=== PATIENT | male | born 1955 | race Caucasian/White ===

== ENCOUNTER 2019-04-17 15:20 | Emergency (ER) | payer OTHER ==
[~2019-04-17] VITALS: Ht 165.1 cm; Wt 60.0 kg
[2019-04-17 15:36] VITALS: Ht 165.1 cm; Wt 60.0 kg
--- NOTE | 2019-04-17 20:56 | ERD ---
ER Documentation Chief Complaint Chief Complaint lab work prior to getting dialysis HPI 63-year-old male with a history of ESRD on hemodialysis and hypertension presenting from [facility] with request for lab work. Reportedly the patient went to [place] for 2 months and is now returning. Before he can get dialysis, they state that he needs certain blood tests done including hepatitis B testing as well as either chest x-ray or blood work for TB. Patient is completely asymptomatic at this time. Denies any cough, hemoptysis, fever, chills, abdominal pain, chest pain, shortness of breath, nausea, vomiting, diarrhea. ROS All systems reviewed and are negative except as per history of present illness. Allergies Allergies: Coded Allergies: No Known Allergy (Unverified , 04/17/19) PMhx/Soc History of Surgery: Yes (permacath, AV shunt) Anesthesia Reaction: No Hx Neurological Disorder: No Hx Respiratory Disorders: No Hx Cardiac Disorders: Yes (HTN) Hx Psychiatric Problems: No Hx Miscellaneous Medical Probl: Yes (To start dialysis) Hx Alcohol Use: No Hx Substance Use: No Hx Tobacco Use: No Smoking Status: Never smoker FmHx Family History: diabetes Physical Exam Vitals Vital Signs Date Temp Pulse Resp B/P (MAP) Pulse Ox O2 O2 Flow FiO2 Time Delivery Rate 04/17/19 98.0 67 15 201/84 100 Room Air 21:15 (123) 04/17/19 97.9 72 18 128/68 100 15:36 (88) Physical Exam Const: No acute distress Head: Atraumatic Eyes: Normal Conjunctiva ENT: Normal External Ears, Nose and Mouth. Neck: Full range of motion. No meningismus. Resp: Clear to auscultation bilaterally Cardio: Regular rate and rhythm, no murmurs Abd: Soft, non tender, non distended. No hepatomegaly. Normal bowel sounds Skin: No petechiae or rashes Ext: No cyanosis, or edema Neur: Awake and alert Psych: Normal Mood and Affect Result Diagram: 04/17/19 1549 Results 24 hrs Laboratory Tests Test 04/17/19 18:37 04/17/19 19:37 Sodium Level 138 mmol/L Potassium Level 5.0 mmol/L Chloride Level 103 mmol/L Carbon Dioxide Level 19 mmol/L Anion Gap 16 Blood Urea Nitrogen 59 mg/dl Creatinine 10.41 mg/dl Est Glomerular Filtrat Rate mL/min 5 mL/min Glucose Level 109 mg/dl Calcium Level 8.1 mg/dl Phosphorus Level 5.6 mg/dl Magnesium Level 3.0 mg/dl Hepatitis B Surface Antigen NEGATIVE Hepatitis B Core Total Antibody NEGATIVE Hepatitis C Antibody NEGATIVE Hepatitis A IgM Antibody NON-REACTIVE Procedures/MDM EMERGENT LABS AND DIAGNOSTIC STUDIES: Lab Results above were reviewed and interpreted by me. BMP: Evidence of chronic kidney disease with elevated BUN and creatinine with no e/o clinically significant electrolyte abnormality, severe acidosis, alkalosis, diabetic ketoacidosis Hepatitis panel: Negative Radiology Results as interpreted by Radiology below were reviewed by Susan Celis MD: Chest x-ray shows no significant abnormalities, no evidence of TB Initial Nursing notes reviewed. Previous Medical Records requested via the Electronic Health Record. EMERGENCY DEPARTMENT COURSE / MEDICAL DECISION MAKING: Patient is presenting with request for blood work for dialysis. He was noted to be hypertensive but is asymptomatic. Otherwise his vitals are unremarkable. Exam was unremarkable. No evidence of fluid overload at this time. No evidence of significant electrolyte abnormalities. Patient does not require emergent dialysis at this time. Labs were done and showed no significant abnormalities other than evidence of chronic kidney disease. I provided the patient with his blood and chest x-ray results. I feel he is medically cleared to go back to dialysis. Patient's blood pressure was elevated (>120/80) but appears stable without evidence of hypertensive emergency or urgency. The patient was counseled about the risks of hypertension and urged to pursue outpatient monitoring and therapy within a week with their primary care physician. Departure Diagnosis: Primary Impression: Encounter for laboratory test Additional Impression: ESRD on hemodialysis Condition: Stable Patient Instructions: Medical Screening Exam, Nonurgent Referrals: NO PRIMARY,CARE PHYSICIAN (PCP) MARGO CELIS MD Apr 17, 2019 20:56
[2019-04-17 21:15] VITALS: BP 201/84; PULSE 67; RESP 15
== END 2019-04-17 21:18 | disposition home or self-care (01) ==
LOC: E/R 15:20
DX: N18.6 End stage renal disease (principal); I12.0 Hypertensive chronic kidney disease with stage 5 chronic kidney disease or end stage renal disease; Z99.2 Dependence on renal dialysis
CPT/HCPCS: 71045; 80048; 83735; 84100; 86704; 86709; 86803; 87340; Z7502

== ENCOUNTER 2019-04-19 11:13 | Emergency (ER) | payer OTHER ==
[~2019-04-19] VITALS: Ht 162.6 cm; Wt 60.6 kg
[2019-04-19 11:15] VITALS: Ht 162.6 cm; Wt 60.6 kg
--- NOTE | 2019-04-19 12:36 | ERD ---
ER Documentation Chief Complaint Chief Complaint sent by clinic -needs medical evaluation ( lab works) before dialysis HPI 63-year-old male sent by his dialysis clinic for lab request. I actually saw this patient 2 days ago and labs and imaging were done. Patient has no complaints at this time but states that his dialysis was 5 days ago and he is requesting dialysis. No complaints at this time. ROS All systems reviewed and are negative except as per history of present illness. Medications Home Meds Reported Medications Calcium Acetate* (Calcium Acetate*) 667 Mg Capsule, 1334 MG PO WITH MEALS, #60 CAP 04/19/19 Losartan Potassium* (Losartan Potassium*) 50 Mg Tablet, 50 MG PO DAILY, TAB 04/19/19 Allergies Allergies: Coded Allergies: No Known Allergy (Unverified , 04/19/19) PMhx/Soc History of Surgery: Yes (permacath, AV shunt) Anesthesia Reaction: No Hx Neurological Disorder: No Hx Respiratory Disorders: No Hx Cardiac Disorders: Yes (HTN) Hx Psychiatric Problems: No Hx Miscellaneous Medical Probl: Yes (dm , on dialsysis ) Hx Alcohol Use: No Hx Substance Use: No Hx Tobacco Use: No Smoking Status: Never smoker FmHx No pertinent history Physical Exam Vitals Vital Signs Date Temp Pulse Resp B/P (MAP) Pulse Ox O2 O2 Flow FiO2 Time Delivery Rate 04/19/19 69 18 200/96 98 Room Air 13:45 (130) 04/19/19 98.2 73 19 210/93 99 11:15 (132) Physical Exam INITIAL VITAL SIGNS: Reviewed by me GENERAL: Well appearing, non toxic, speaking in full sentences. HEENT: Atraumatic, Moist mucous membranes NECK: Supple. RESPIRATORY: No respiratory distress. Clear to auscultation bilaterally CV: regular rate rhythm EXTREMITIES: No clubbing or cyanosis. No edema SKIN: Warm, dry. NEUROLOGIC: Alert and awake. No facial asymmetry. Normal speech. Result Diagram: 04/19/19 1301 Results 24 hrs Laboratory Tests Test 04/19/19 13:01 04/19/19 13:35 Sodium Level 139 mmol/L Potassium Level 5.4 mmol/L Chloride Level 105 mmol/L Carbon Dioxide Level 18 mmol/L Anion Gap 16 Blood Urea Nitrogen 90 mg/dl Creatinine 12.20 mg/dl Est Glomerular Filtrat Rate mL/min 4 mL/min Glucose Level 237 mg/dl Calcium Level 7.6 mg/dl Hepatitis B Surface Antibody POSITIVE Current Medications Medications Dose Sig/Hattie Start Time Status Last (Trade) Ordered Route PRN Stop Time Admin Dose Reason Admin Sodium 30 gm ONCE ONCE 04/19/19 DC Polystyrene PO 15:00 04/19/19 Sulfonate 15:01 (Kayexalate) Sodium 30 gm ONCE ONCE 04/19/19 Polystyrene PO 15:30 04/19/19 Sulfonate 15:31 (Kayexelate 15 Gm Kit (Powder+Sorbi seth)) Procedures/MDM Spoke with the dialysis center. It seems that the patient's daughter had faxed the results to another place and not to them. They never received the results. We did fax the results from the ER to the dialysis center. However they state they do not have a chair for the patient until 2 days from now. For this reason, BMP was done in the ED. no significant hyperkalemia. Patient given Kayexalate orally. They also requested a hep B surface antibody test to be done. This test was positive for antibodies. Patient provided with results. Will have dialysis this week Patient's blood pressure was elevated (>120/80) but appears stable without evidence of hypertension emergency or urgency. The patient was counseled about the risks of hypertension and urged to pursue outpatient monitoring and therapy within a week with their primary care physician. Departure Diagnosis: Primary Impression: ESRD on hemodialysis Additional Impression: Encounter for laboratory test Condition: Stable MARGO HOBBS MD Apr 19, 2019 12:36
[2019-04-19] MEDS ORDERED: LOSA50TA14 PO (13:44)
[2019-04-19] MEDS ORDERED: CALC667C PO (13:45)
[2019-04-19] MEDS ORDERED: NA POLYST SULFON 15 GM/60 ML BTL PO ONE (15:00)
[2019-04-19] MEDS ORDERED: SODIUM POLYSTYRENE 15 GM KIT (POWDER + SORBITOL) PO ONE (15:30)
[2019-04-19 16:00] VITALS: BP 182/89; PULSE 71; RESP 18
== END 2019-04-19 16:00 | disposition home or self-care (01) ==
LOC: E/R 11:13
DX: N18.6 End stage renal disease (principal); E11.22 Type 2 diabetes mellitus with diabetic chronic kidney disease; I12.0 Hypertensive chronic kidney disease with stage 5 chronic kidney disease or end stage renal disease; Z99.2 Dependence on renal dialysis
CPT/HCPCS: 80048; 86706; Z7502; Z7610

== ENCOUNTER 2019-07-01 08:17 | Emergency (ER) | payer OTHER ==
[~2019-07-01] VITALS: Ht 167.6 cm; Wt 59.4 kg
[~2019-07-01 08:17] MED LIST: CALC667C PO; CEPH-443 PO; LOSA50TA14 PO; SULF1TAB31 PO
[2019-07-01 08:30] VITALS: Ht 167.6 cm; Wt 59.4 kg
[2019-07-01] MEDS ORDERED: VANCOMYCIN 1 GM (PMX) 250 ML IVPB ONE (10:30)
[2019-07-01] MEDS ORDERED: SOD CHLORIDE 0.9% 500 ML IV ONE (10:30)
--- NOTE | 2019-07-01 10:40 | ERD ---
ER Documentation Chief Complaint Chief Complaint right arm red warm & swollen x3 days sent fr clinic HPI This is a 63-year-old male with a past medical history of hypertension, diabetes, end-stage renal disease status post left arm AV fistula that is no longer functional now with a right chest permacatheter on dialysis Wednesday/Wedne /Wednesday, last completed dialysis fully, who is presenting for 5 days of progressive worsening pain, swelling, redness and warmth to the right hand and forearm. The patient reports moderate sharp pain to the right pinky specifically with significant pain with movement of the pinky. The patient does not endorse any trauma or injury. He does not endorse any alleviating factors. The patient denies feeling sick recently. The patient denies fever or chills. The patient has had no headache or vision changes. The patient does not endorse neck or back pain. The patient denies lightheadedness or dizziness. The patient has had no chest pain or trouble breathing. The patient denies nausea or vomiting. The patient denies abdominal pain. The patient denies changes to bowel movements or urination. The patient has had no focal deficits. The patient has had no weakness or numbness or tingling to the face or extremities. ROS All systems reviewed and are negative except as per history of present illness. Medications Home Meds Reported Medications Calcium Acetate* (Calcium Acetate*) 667 Mg Capsule, 1334 MG PO WITH MEALS, #60 CAP 04/19/19 Losartan Potassium* (Losartan Potassium*) 50 Mg Tablet, 50 MG PO DAILY, TAB 04/19/19 Allergies Allergies: Coded Allergies: No Known Allergy (Unverified , 07/01/19) PMhx/Soc History of Surgery: Yes (permacath, AV shunt) Anesthesia Reaction: No Hx Neurological Disorder: No Hx Respiratory Disorders: No Hx Cardiac Disorders: Yes (HTN) Hx Psychiatric Problems: No Hx Miscellaneous Medical Probl: Yes (dm , on dialsysis ( wed , wed, wed )) Hx Alcohol Use: No Hx Substance Use: No Hx Tobacco Use: No Smoking Status: Never smoker FmHx Family History: diabetes Physical Exam Vitals Vital Signs Date Temp Pulse Resp B/P (MAP) Pulse Ox O2 O2 Flow FiO2 Time Delivery Rate 07/01/19 99.6 86 16 190/90 99 Room Air 10:00 (123) 07/01/19 99.4 80 20 215/101 100 08:30 (139) Physical Exam Const: No acute distress Head: Atraumatic Eyes: Normal Conjunctiva ENT: Normal External Ears, Nose and Mouth. Neck: Full range of motion. No meningismus. Resp: Clear to auscultation bilaterally Cardio: Regular rate and rhythm, no murmurs Chest: Right chest permacath present without surrounding erythema or induration or purulence or fluctuance. Abd: Soft, non tender, non distended. Normal bowel sounds Skin: No petechiae or rashes Back: No midline or flank tenderness Ext: No cyanosis. Left forearm fistula site without palpable thrill. Erythema, warmth and edema to the ulnar aspect of the right forearm and hand, extending into the right pinky. Symmetric circumferential swelling of the right pinky with tenderness to palpation diffusely and significant pain on passive extension. Neur: Awake and alert Psych: Normal Mood and Affect Result Diagram: 07/01/19 1038 07/01/19 1038 Results 24 hrs Laboratory Tests Test 07/01/19 10:38 White Blood Count 6.7 10^3/ul Red Blood Count 3.89 10^6/ul Hemoglobin 12.3 g/dl Hematocrit 38.8 % Mean Corpuscular Volume 99.7 fl Mean Corpuscular Hemoglobin 31.6 pg Mean Corpuscular Hemoglobin Concent 31.7 g/dl Red Cell Distribution Width 12.9 % Platelet Count 170 10^3/UL Mean Platelet Volume 9.4 fl Immature Granulocytes % 0.300 % Neutrophils % 74.2 % Lymphocytes % 12.4 % Monocytes % 12.4 % Eosinophils % 0.6 % Basophils % 0.1 % Nucleated Red Blood Cells % 0.0 /100WBC Immature Granulocytes # 0.020 10^3/ul Neutrophils # 5.0 10^3/ul Lymphocytes # 0.8 10^3/ul Monocytes # 0.8 10^3/ul Eosinophils # 0.0 10^3/ul Basophils # 0.0 10^3/ul Nucleated Red Blood Cells # 0.0 10^3/ul Sodium Level 136 mmol/L Potassium Level 5.6 mmol/L Chloride Level 100 mmol/L Carbon Dioxide Level 24 mmol/L Anion Gap 12 Blood Urea Nitrogen 41 mg/dl Creatinine 7.95 mg/dl Est Glomerular Filtrat Rate mL/min 7 mL/min Glucose Level 118 mg/dl Calcium Level 8.8 mg/dl Current Medications Medications Dose Sig/Hattie Start Time Status Last (Trade) Ordered Route PRN Stop Time Admin Dose Reason Admin Sodium 500 ml @ Q1H ONCE 07/01/19 DC 07/01/19 Chloride 500 mls/hr IV 10:30 10:50 07/01/19 11:29 Vancomycin 250 ml @ ONCE ONCE 07/01/19 DC 07/01/19 HCl 125 mls/hr IVPB 10:30 10:49 07/01/19 12:29 Procedures/MDM MDM The patient's presentation warrants further investigation. Previous medical records, if available, were reviewed. LABS The patient's laboratory testing was obtained and reviewed. No emergent treatment was required unless described below. CBC: No E/o systemic infection or severe anemia or thrombocytopenia. Mild normocytic anemia is evident. Chemistry: No E/o severe acidosis or alkalosis or diabetic ketoacidosis. Elevated BUN and creatinine in line with known end-stage renal disease. Mild hyperkalemia, not emergent prior to antibiotic administration. IMAGING Imaging and Radiology interpretation reviewed. MRI R Hand Pending TREATMENT/DISPOSITION The patient presents for a right upper extremity infection. There is evidence of cellulitis to the extremity. That said, given the presentation of the patient's fifth digit, I am concerned about the possibility of flexor tenosynovitis. There is tenderness along the course of the flexor sheath. There is symmetric enlargement of the affected digit. The finger is slightly flexed at rest. There is pain along the tendon with passive extension. I spoke with the hand surgeon, Dr. Worrell, who recommended that an MRI of the right hand to be completed in the emergency department. The results of the MRI are pending. If the MRI is positive for flexor tenosynovitis, the patient will require transfer to a facility with an on-call hand surgeon this weekend. Dr. Worrell was available to discuss the case, but she is not container shop welder and not available to emergently evaluate this patient for surgical intervention if the diagnosis of flexor tenosynovitis is confirmed. In this situation, the patient will require transfer to a higher level of care. If the patient does not have flexor tenosynovitis or any other emergent pathology, the patient may be discharged with prescriptions for Keflex and Bactrim. He will require close follow-up in an outpatient setting in this situation. The patient was treated with a dose of vancomycin in the emergency department. The patient is not septic and does not require a full septic work-up. That said, blood cultures were sent off. The patient was signed out to the oncoming physician at 3 PM on July 01, 2019 pending the results of the MRI. DISCLAIMER Inadvertent spelling and grammatical errors are likely due to EHR/dictation sof tware use and do not reflect on the overall quality of patient care. Note that the electronic time recorded on this note does not necessarily reflect the actual time of the patient encounter. Departure Diagnosis: Primary Impression: Cellulitis of right hand Additional Impressions: Flexor tenosynovitis of finger ESRD (end stage renal disease) on dialysis Hyperkalemia Normocytic anemia Condition: Stable (Anticipated) ASTRID CAREY MD Jul 01, 2019 10:30
[2019-07-01] MEDS ORDERED: NICARDipine HCL 30 MG CAPSULE PO ONE (17:00)
--- NOTE | 2019-07-01 17:18 | ERD ---
ER Documentation Chief Complaint Chief Complaint right arm red warm & swollen x3 days sent fr clinic ROS All systems reviewed and are negative except as per history of present illness. Medications Home Meds Active Scripts Cephalexin* (Keflex*) 500 Mg Capsule, 500 MG PO QID for 10 Days, CAP Prov:ASTRID COOLEY MD 07/01/19 Sulfamethoxazole/Trimethoprim* (Bactrim Ds* Tablet) 1 Each Tablet, 1 TAB PO BID, #20 TAB Prov:ASTRID COOLEY MD 07/01/19 Reported Medications Calcium Acetate* (Calcium Acetate*) 667 Mg Capsule, 1334 MG PO WITH MEALS, #60 CAP 04/19/19 Losartan Potassium* (Losartan Potassium*) 50 Mg Tablet, 50 MG PO DAILY, TAB 04/19/19 Allergies Allergies: Coded Allergies: No Known Allergy (Unverified , 07/01/19) PMhx/Soc History of Surgery: Yes (permacath, AV shunt) Anesthesia Reaction: No Hx Neurological Disorder: No Hx Respiratory Disorders: No Hx Cardiac Disorders: Yes (HTN) Hx Psychiatric Problems: No Hx Miscellaneous Medical Probl: Yes (dm , on dialsysis ( mon , wed, fri )) Hx Alcohol Use: No Hx Substance Use: No Hx Tobacco Use: No Smoking Status: Never smoker Physical Exam Vitals Vital Signs Date Temp Pulse Resp B/P (MAP) Pulse Ox O2 O2 Flow FiO2 Time Delivery Rate 07/01/19 98.5 75 16 220/98 99 Room Air 16:40 (138) 07/01/19 77 15 219/98 99 Room Air 16:30 (138) 07/01/19 82 16 169/86 99 Room Air 13:30 (113) 07/01/19 99.6 86 16 190/90 99 Room Air 10:00 (123) 07/01/19 99.4 80 20 215/101 100 08:30 (139) Physical Exam Const: No acute distress Head: Atraumatic Eyes: Normal Conjunctiva ENT: Normal External Ears, Nose and Mouth. Neck: Full range of motion. No meningismus. Resp: Clear to auscultation bilaterally Cardio: Regular rate and rhythm, no murmurs Abd: Soft, non tender, non distended. Normal bowel sounds Skin: No petechiae or rashes Back: No midline or flank tenderness Ext: No cyanosis, or edema Neur: Awake and alert Psych: Normal Mood and Affect Result Diagram: 07/01/19 1038 07/01/19 1038 Results 24 hrs Laboratory Tests Test 07/01/19 10:38 White Blood Count 6.7 10^3/ul Red Blood Count 3.89 10^6/ul Hemoglobin 12.3 g/dl Hematocrit 38.8 % Mean Corpuscular Volume 99.7 fl Mean Corpuscular Hemoglobin 31.6 pg Mean Corpuscular Hemoglobin Concent 31.7 g/dl Red Cell Distribution Width 12.9 % Platelet Count 170 10^3/UL Mean Platelet Volume 9.4 fl Immature Granulocytes % 0.300 % Neutrophils % 74.2 % Lymphocytes % 12.4 % Monocytes % 12.4 % Eosinophils % 0.6 % Basophils % 0.1 % Nucleated Red Blood Cells % 0.0 /100WBC Immature Granulocytes # 0.020 10^3/ul Neutrophils # 5.0 10^3/ul Lymphocytes # 0.8 10^3/ul Monocytes # 0.8 10^3/ul Eosinophils # 0.0 10^3/ul Basophils # 0.0 10^3/ul Nucleated Red Blood Cells # 0.0 10^3/ul Sodium Level 136 mmol/L Potassium Level 5.6 mmol/L Chloride Level 100 mmol/L Carbon Dioxide Level 24 mmol/L Anion Gap 12 Blood Urea Nitrogen 41 mg/dl Creatinine 7.95 mg/dl Est Glomerular Filtrat Rate mL/min 7 mL/min Glucose Level 118 mg/dl Calcium Level 8.8 mg/dl Current Medications Medications Dose Sig/Hattei Start Time Status Last (Trade) Ordered Route PRN Stop Time Admin Dose Reason Admin Sodium 500 ml @ Q1H ONCE 07/01/19 DC 07/01/19 Chloride 500 mls/hr IV 10:30 10:50 07/01/19 11:29 Vancomycin 250 ml @ ONCE ONCE 07/01/19 DC 07/01/19 HCl 125 mls/hr IVPB 10:30 10:49 07/01/19 12:29 Nicardipine 30 mg ONCE ONCE 07/01/19 DC HCl PO 17:00 (Cardene) 07/01/19 17:01 Procedures/[place] [id number] Radiology Main Line: [phone] DIAGNOSTIC IMAGING REPORT Patient: MELIDANCGHAZAL CUETO : 1955 Age: 63 Sex: M [id number] DOS: 07/01/19 1034 Ordering MD: ASTRID COOLEY MD Location: E/R Room/Bed: PROCEDURE: MRI OF THE RIGHT HAND. CLINICAL INDICATION: Right hand swelling. No history of injury. Inability to extend the fingers TECHNIQUE: Multiple MRI images were obtained utilizing multiple pulse sequences in all three planes. Images were interpreted on high-resolution PACS system. COMPARISON: None available FINDINGS: Osseous structures: Bone marrow signal is preserved without evidence of edema. There is suggestion of callus formation about the third metacarpal shaft likely related to an old healed fracture. There is no evidence of fracture or dislocation. There is mild multifocal metacarpal phalangeal osteoarthrosis. There is no joint erosion. No findings are present to suggest osteomyelitis or periostitis. Musculature, tendons, ligaments and subcutaneous tissues: Amorphous hyperintense subcutaneous fat signal on the proton density fat suppressed sequences compatible with edema, nonspecific but concerning for cellulitis. There is no organized collection within the subcutaneous fat to suggest an abscess. The extensor and flexor tendons maintain normal low signal intensity throughout without evidence of tenderness rupture, tendinosis or tendon displacement. The intrinsic musculature of the hand shows nonspecific edematous changes without collection or intramuscular tear. There is no evidence of ligamentous disruption, the pb systems of the individual fingers are grossly normal, some artifact limits evaluation on the sagittal images. No vascular abnormalities are evident RPTAT:HJJR IMPRESSION: 1. Diffuse hyperintense proton density signal throughout the subcutaneous tissues of the right hand correlate with the provided history of swelling but are changes of nonspecific edema, concerning for cellulitis without soft tissue abscess. Close clinical follow-up is recommended. 2. There is no evidence for bone marrow edema or acute osseous abnormality although there is suggestion of an old healed third metacarpal shaft fracture which correlation to remote trauma is recommended. 3. The muscles of the right hand shows some edematous changes concerning for myositis without muscular tear or intramuscular abscess. 4. No tendinous or ligamentous abnormality of the right hand is evident. Benedicto Clark, Physician Date Time Electronically viewed and signed by Benedicto Rodas Physician on 07/01/2019 17:02 JR/ CC: ASTRID COOLEY MD [phone] Dr. Cooley had any follow-up on MRI of the hand. He said the patient's discharge paperwork is ready to go if he does not have any tendon involvement. The MRI shows more consistency with cellulitis as Dr. Cooley told me he expected it was going to read. The patient had been written for Keflex and Bactrim to be discharged home with Dr. Cooley Departure Diagnosis: Primary Impression: Cellulitis of right hand Additional Impressions: Normocytic anemia ESRD (end stage renal disease) on dialysis Flexor tenosynovitis of finger Hyperkalemia Condition: Stable Patient Instructions: Cellulitis Referrals: NO PRIMARY,CARE PHYSICIAN (PCP) KELSIE TOBIAS MD Call to schedule an appointment for evaluation of your hand. If you are unable to see this doctor, please follow up with your PCP or follow up at a [facility] facility in the next 48 hours. Additional Instructions: Thank you for for coming to [facility] [place] [facility] for your care today. Please ask your nurse or provider if you have questions about your care today and do not leave until all your questions have been answered. Please use any medications given as directed and follow-up with your doctor (or the doctor you were referred to) in the next 1-3 days. If you do not have a primary care doctor you [place] [facility] [place] [facility] (listed below). You may also use motrin and tylenol as needed for fever and/or pain unless instructed otherwise by your provider or nurse. Indications for more urgent follow-up have been discussed, but you may return to the Emergency Department at ANY time for any worrisome or worsening symptoms. If you have abdominal pain, please know that no test or exam you received is perfect and you should follow up within 8 hours for continued pain. If you had any imaging studies today, such as an X-Ray or CT Scan, these studies will be reviewed later by a radiologist. You will be called if there are important findings that were not identified today, so make sure the contact information you provided at registration is correct. If you received any narcotic pain control medicine today, such as Vicodin, Morphine or Dilaudid, your coordination and judgment may be affected for a number of hours. Please do not drive or operate heavy machinery, and you may want someone to assist you at home. If you were given a prescription for narcotic medication, be aware that it is very addictive- use sparingly and only if necessary. PLEASE SEEK FURTHER EVALUATION AND MANAGEMENT AT YOUR DOCTORS OFFICE WITHIN THE NEXT 1-3 DAYS. IT IS YOUR RESPONSIBILITY TO MAKE AN APPOINTMENT FOR FOLOW-UP CARE. IF YOU HAVE A PRIMARY DOCTOR, PLEASE CALL THEIR OFFICE TO SCHEDULE AN APPOINTMENT FOR FOLLOW UP. IF YOU DO NOT HAVE A PRIMARY DOCTOR YOU CAN CALL OUR PHYSICIAN REFERRAL HOTLINE AT IF YOU CAN NOT AFFORD TO SEE A PHYSICIAN YOU CAN CHOSE FROM THE FOLLOWING [facility] OR [facility] CLINICS: [facility] [address] [facility] [address] [facility] [facility] [address] [facility] [address] [facility] [address] [facility] [facility] [facility] [address] [place] [address] [facility] [address] [place] [address] [facility] [address] [place] [address] CARMEN FITCH DO Jul 01, 2019 17:18
[2019-07-01 17:40] VITALS: BP 181/81; PULSE 84; RESP 16
== END 2019-07-01 17:52 | disposition home or self-care (01) ==
LOC: FTE 08:17 → E/R 17:52
DX: L03.113 Cellulitis of right upper limb (principal); I12.0 Hypertensive chronic kidney disease with stage 5 chronic kidney disease or end stage renal disease; N18.6 End stage renal disease; E87.5 Hyperkalemia; D64.9 Anemia, unspecified; M65.88 Other synovitis and tenosynovitis, other site; E11.22 Type 2 diabetes mellitus with diabetic chronic kidney disease; Z99.2 Dependence on renal dialysis
CPT/HCPCS: 73218; 80048; 85025; 87040; 96374; J3370; J7040; Z7502; Z7610